=== PATIENT | female | born 1950 | race Caucasian/White ===

== ENCOUNTER 2022-09-18 09:17 | Inpatient (IN) | payer OTHER, MEDICARE ==
[~2022-09-18 09:17] MED LIST: Bupivacaine 0.5% 50 ML MDV ONE; Lactated Ringers 1,000 ML IV SCH; Nozin Nasal Sanitizer NASBOTH ONE
[2022-09-18] MEDS ORDERED: Propofol 200 MG/20 ML SDV ONE ×2 (09:22→11:29)
[2022-09-18] MEDS ORDERED: fentaNYL 100 MCG/2 ML SDV ONE (09:23)
[2022-09-18] MEDS ORDERED: Midazolam 1 MG/ML 2 ML SDV ONE (09:23)
[2022-09-18] MEDS ORDERED: ceFAZolin 2 GM in Premix Bag 1 BAG IV ONE (09:30)
[2022-09-18] MEDS ORDERED: Docusate Sodium 100 MG Cap PO PRN (11:03)
[2022-09-18] MEDS ORDERED: Ondansetron 4 MG/2 ML SDV IVPUSH PRN (11:03)
[2022-09-18] MEDS ORDERED: Morphine 2 MG/ML SYRINGE IVPUSH PRN (11:03)
[2022-09-18] MEDS ORDERED: oxyCODONE 5 MG Tab PO PRN (11:08)
[2022-09-18] MEDS ORDERED: Sodium Chloride 0.9% 1,000 ML IV SCH (11:15)
[2022-09-18] MEDS ORDERED: Lactated Ringers 1,000 ML ONE (11:21)
[2022-09-18] MEDS: Acetaminophen 325 MG Tab PO SCH ×2 (14:08→20:17)
[2022-09-18] MEDS: oxyCODONE 5 MG Tab PO PRN (15:27)
[2022-09-18] MEDS: ceFAZolin 1 GM in Premix Bag 1 BAG IV SCH (17:17)
[2022-09-18] MEDS: Aspirin 325 MG Tab.EC PO SCH (20:17)
[2022-09-18] MEDS: Nozin Nasal Sanitizer NASBOTH SCH (21:36)
[2022-09-19] MEDS: ceFAZolin 1 GM in Premix Bag 1 BAG IV SCH ×2 (02:04→10:12)
[2022-09-19] MEDS: Acetaminophen 325 MG Tab PO SCH ×4 (02:04→19:42)
[2022-09-19] MEDS ORDERED: Non-Formulary Medication 1 Each (Levothyroxine Sodium [Levothyroxine Sodium] 137 MCG Table PO SCH (07:30)
[2022-09-19] MEDS: Rosuvastatin 10 MG Tab PO SCH (08:50)
[2022-09-19] MEDS: Aspirin 325 MG Tab.EC PO SCH ×2 (08:50→20:20)
[2022-09-19] MEDS: Nozin Nasal Sanitizer NASBOTH SCH ×2 (08:50→20:20)
[2022-09-20 00:53] LABS: BASE EXCESS ARTERIAL -2.8 mm/L; BICARBONATE,ARTERIAL 20.3 mmol/L (22.0-26.0); CARBOXYHEMOGLOBIN 2.3 % (0.0-1.6); METHEMOGLOBIN 1.5 %; OXYHEMOGLOBIN 92.4 %; PCO2 ARTERIAL 30.4 mmHg (35.0-42.0); PO2 ARTERIAL 83.8 mmHg (75.0-100.0); TOTAL HEMOGLOBIN 9.5 g/dL (12.0-16.0)
[2022-09-20 00:55] LABS: BASOPHILS PERCENT AUTO 0.1 % (0.1-1.3); HEMATOCRIT 27.8 % (34.3-46.0); HEMOGLOBIN 9.4 g/dL (11.2-15.5); IMMATURE GRAN ABSOLUTE AUTO 0.09 K/uL (0.00-0.23); IMMATURE GRAN PERCENT AUTO 0.7 % (0.0-0.7); LYMPHOCYTES ABSOLUTE AUTO 1.32 K/uL (0.8-3.3); LYMPHOCYTES PERCENT AUTO 10.7 % (11.4-47.7); MEAN CORPUSCULAR HEMOGLOBIN 30.9 pg (31.6-35.5); MEAN CORPUSCULAR HGB CONC 33.8 g/dL (31.6-35.5); MEAN CORPUSCULAR VOLUME 91.4 fL (81.4-99.0); MONOCYTES ABSOLUTE AUTO 1.97 K/uL (0.20-0.90); NEUTROPHILS ABSOLUTE AUTO 8.93 K/uL (1.0-7.6); NEUTROPHILS PERCENT AUTO 72.5 % (40.0-78.1); PLATELET COUNT,PLT 255 K/uL (130-375); RED BLOOD CELL COUNT 3.04 M/uL (3.77-5.24); WHITE BLOOD CELL COUNT,WBC 12.3 K/uL (3.2-11.0)
[2022-09-20 00:59] LABS: BASOPHILS ABSOLUTE AUTO 0.01 K/uL (0.00-0.10)
[2022-09-20 01:20] LABS: A/G RATIO 0.7 (1.2-2.2); ALANINE AMINOTRANSFERASE,ALT 47 U/L (12-78); ALBUMIN 2.6 g/dL (3.4-5.0); ALKALINE PHOSPHATASE 82 U/L (46-116); ASPARTATE AMNIOTRANSFERASE,AST 53 U/L (15-37); BILIRUBIN TOTAL 0.5 mg/dL (0.2-1.0); BLOOD UREA NITROGEN,BUN 20 mg/dL (7-18); CALCIUM 8.3 mg/dL (8.5-10.1); CARBON DIOXIDE,CO2 21 mmol/L (21-32); CHLORIDE,CL 101 mmol/L (100-108); CREATININE 0.8 mg/dL (0.6-1.0); ESTIMATED GFR 78 mL/min (>60); GLUCOSE RANDOM 132 mg/dL (74-106); MAGNESIUM 1.6 mg/dL (1.8-2.4); POTASSIUM,K 3.4 mmol/L (3.6-5.2); PROTEIN TOTAL,TP 6.4 g/dL (6.4-8.2); SODIUM,NA 134 mmol/L (140-148); TROPONIN I HIGH SENSITIVITY 9.6 pg/mL (<=60.3)
[2022-09-20] MEDS: Acetaminophen 325 MG Tab PO SCH ×4 (01:34→19:38)
[2022-09-20 01:39] LABS: ANION GAP 15.4 mmol/L (5.0-14.0)
[2022-09-20 06:59] LABS: BASOPHILS PERCENT AUTO 0.2 % (0.1-1.3); HEMOGLOBIN 9.1 g/dL (11.2-15.5); IMMATURE GRAN PERCENT AUTO 0.8 % (0.0-0.7); LYMPHOCYTES ABSOLUTE AUTO 1.11 K/uL (0.8-3.3); LYMPHOCYTES PERCENT AUTO 9.4 % (11.4-47.7); MEAN CORPUSCULAR HEMOGLOBIN 31.7 pg (31.6-35.5); MEAN CORPUSCULAR VOLUME 90.6 fL (81.4-99.0); MONOCYTES ABSOLUTE AUTO 1.86 K/uL (0.20-0.90); MONOCYTES PERCENT AUTO 15.7 % (3.3-12.6); NEUTROPHILS ABSOLUTE AUTO 8.75 K/uL (1.0-7.6); NEUTROPHILS PERCENT AUTO 73.9 % (40.0-78.1); PLATELET COUNT,PLT 260 K/uL (130-375); RED BLOOD CELL COUNT 2.87 M/uL (3.77-5.24); WHITE BLOOD CELL COUNT,WBC 11.8 K/uL (3.2-11.0)
[2022-09-20 07:01] LABS: BASOPHILS ABSOLUTE AUTO 0.02 K/uL (0.00-0.10)
[2022-09-20] MEDS: Aspirin 325 MG Tab.EC PO SCH ×2 (08:05→21:20)
[2022-09-20] MEDS: Nozin Nasal Sanitizer NASBOTH SCH ×2 (08:05→21:20)
[2022-09-20] MEDS: Rosuvastatin 10 MG Tab PO SCH (08:05)
[2022-09-20] MEDS ORDERED: Potassium Chloride 20 MEQ Tab.ER PO ONE (09:30)
[2022-09-20] MEDS: Magnesium Oxide 400 MG Tab PO SCH ×2 (11:04→21:20)
[2022-09-20] MEDS: Magnesium Sulfate/Water 2 GM in Premix Bag 1 BAG IV SCH ×2 (11:04→16:12)
[2022-09-20] MEDS ORDERED: Sodium Chloride 0.9% 10 ML Syringe FLUSH ONE (13:19)
[2022-09-20] MEDS ORDERED: Iopamidol 755 Mg/ML 100 ML Bottle IV SCH (13:30)
[2022-09-20] MEDS ORDERED: Sodium Chloride 0.9% 75 ML IV SCH (13:30)
[2022-09-20] MEDS ORDERED: Gadoteridol 279.3 MG/ML 15 ML SDV IV SCH (16:00)
[2022-09-21] MEDS: Acetaminophen 325 MG Tab PO SCH ×4 (02:51→20:17)
[2022-09-21] MEDS: Nozin Nasal Sanitizer NASBOTH SCH ×2 (08:23→20:17)
[2022-09-21] MEDS: Rosuvastatin 10 MG Tab PO SCH (08:23)
[2022-09-21] MEDS: Aspirin 325 MG Tab.EC PO SCH ×2 (08:23→20:17)
[2022-09-21] MEDS: Magnesium Oxide 400 MG Tab PO SCH ×2 (08:24→20:17)
[2022-09-21] MEDS: oxyCODONE 5 MG Tab PO PRN (18:13)
[2022-09-22] MEDS: Acetaminophen 325 MG Tab PO SCH ×2 (03:55→08:49)
[2022-09-22] MEDS: Aspirin 325 MG Tab.EC PO SCH (08:49)
[2022-09-22] MEDS: Magnesium Oxide 400 MG Tab PO SCH (08:49)
[2022-09-22] MEDS: Nozin Nasal Sanitizer NASBOTH SCH (08:50)
[2022-09-22] MEDS: Rosuvastatin 10 MG Tab PO SCH (08:50)
== END 2022-09-22 10:50 | DRG 470 ==
LOC: JP.SDS 09:17 → JP.MS 11:03 → JP.SDS 09-19 21:18
PROVIDERS: ADMIT Specialist; ATTEND Physician Assistant
PROC: 0SRD069 Replacement of Left Knee Joint with Oxidized Zirconium on Polyethylene Synthetic Substitute, Cemented, Open Approach (ICD-10-PCS; principal; 2022-09-18)
DX: M17.12 Unilateral primary osteoarthritis, left knee (principal); I31.39 Other pericardial effusion (noninflammatory); G45.9 Transient cerebral ischemic attack, unspecified; E78.00 Pure hypercholesterolemia, unspecified; E05.90 Thyrotoxicosis, unspecified without thyrotoxic crisis or storm; Z87.891 Personal history of nicotine dependence; Z20.822 Contact with and (suspected) exposure to COVID-19; I11.9 Hypertensive heart disease without heart failure; I08.1 Rheumatic disorders of both mitral and tricuspid valves; Z79.899 Other long term (current) drug therapy
CPT/HCPCS: 36415; 36600; 70450; 70496; 70496-26; 70498; 70498-26; 70553; 70553-26; 73560-26-LT; 73560-LT; 80053; 82803; 82947; 83605; 83735; 84484; 85025; 87040; 93306; 97110-GP; 97162-GP; 97165-GO; 97530-GP; 99232; A9270-GY; A9579; C1713; C1776; J0690; J2250; J2704; J3010; J3475; J3490; J7030; J7120; Q9967; U0002

== ENCOUNTER 2023-06-19 10:44 | Inpatient (IN) | payer MEDICARE, OTHER ==
[2023-06-19 11:51] LABS: BASOPHILS ABSOLUTE AUTO 0.04 K/uL (0.00-0.10); BASOPHILS PERCENT AUTO 0.5 % (0.1-1.3); EOSINOPHILS ABSOLUTE AUTO 0.03 K/uL (0.00-0.40); EOSINOPHILS PERCENT AUTO 0.4 % (0.0-5.4); HEMATOCRIT 24.5 % (34.3-46.0); HEMOGLOBIN 8.5 g/dL (11.2-15.5); IMMATURE GRAN ABSOLUTE AUTO 0.04 K/uL (0.00-0.23); IMMATURE GRAN PERCENT AUTO 0.5 % (0.0-0.7); LYMPHOCYTES ABSOLUTE AUTO 0.97 K/uL (0.8-3.3); LYMPHOCYTES PERCENT AUTO 13.1 % (11.4-47.7); MEAN CORPUSCULAR HEMOGLOBIN 33.9 pg (31.6-35.5); MEAN CORPUSCULAR HGB CONC 34.7 g/dL (31.6-35.5); MEAN CORPUSCULAR VOLUME 97.6 fL (81.4-99.0); MONOCYTES PERCENT AUTO 12.1 % (3.3-12.6); NEUTROPHILS ABSOLUTE AUTO 5.44 K/uL (1.0-7.6); NEUTROPHILS PERCENT AUTO 73.4 % (40.0-78.1); PLATELET COUNT,PLT 369 K/uL (130-375); RED BLOOD CELL COUNT 2.51 M/uL (3.77-5.24); WHITE BLOOD CELL COUNT,WBC 7.4 K/uL (3.2-11.0)
[2023-06-19 12:11] LABS: A/G RATIO 0.9 (1.2-2.2); ALANINE AMINOTRANSFERASE,ALT 23 U/L (12-78); ALBUMIN 3.1 g/dL (3.4-5.0); ALKALINE PHOSPHATASE 84 U/L (46-116); ASPARTATE AMNIOTRANSFERASE,AST 21 U/L (15-37); BILIRUBIN TOTAL 0.5 mg/dL (0.2-1.0); BLOOD UREA NITROGEN,BUN 13 mg/dL (7-18); CALCIUM 8.4 mg/dL (8.5-10.1); CARBON DIOXIDE,CO2 28 mmol/L (21-32); CHLORIDE,CL 100 mmol/L (100-108); CREATININE 0.6 mg/dL (0.6-1.0); ESTIMATED GFR 95 mL/min (>60); GLUCOSE RANDOM 83 mg/dL (74-106); PROTEIN TOTAL,TP 6.4 g/dL (6.4-8.2); SODIUM,NA 138 mmol/L (140-148)
[2023-06-19 12:13] LABS: ANION GAP 12.2 mmol/L (5.0-14.0); POTASSIUM,K 2.2 mmol/L (3.6-5.2)
[2023-06-19] MEDS: Sodium Chloride 0.9% 10 ML Syringe FLUSH PRN ×2 (12:57→13:41)
[2023-06-19] MEDS: Sodium Chloride 0.9% 100 ML IV SCH (12:57)
[2023-06-19] MEDS: Iopamidol 612 MG/ML 100 ML Bottle IV SCH (12:58)
[2023-06-19] MEDS: Sodium Chloride 0.9% 1,000 ML IV SCH (13:38)
[2023-06-19] MEDS: Magnesium Sulfate/Water 2 GM in Premix Bag 1 BAG IV ONE (13:40)
[2023-06-19] MEDS: NS + KCl 20mEq/L 1,000 ML IV SCH (14:33)
[2023-06-19 15:16] LABS: CORONAVIRUS COVID-19 NAA NEGATIVE (NEGATIVE); INFLUENZA A NAA NEGATIVE (NEGATIVE); INFLUENZA B NAA NEGATIVE (NEGATIVE); RESPIRATORY SYNCYTIAL VIR NAA NEGATIVE (NEGATIVE)
[2023-06-19] MEDS ORDERED: Magnesium Hydroxide 400 MG/5 ML Susp 30 ML Cup PO PRN (18:37)
[2023-06-19] MEDS ORDERED: Ondansetron 4 MG Tab.DIS PO PRN (18:37)
[2023-06-19] MEDS ORDERED: Acetaminophen 325 MG Tab PO PRN (18:37)
[2023-06-19] MEDS ORDERED: Sennosides/Docusate Sodium 50-8.6 MG Tab PO PRN (18:37)
[2023-06-19] MEDS ORDERED: Ondansetron 4 MG/2 ML SDV IV PRN (18:37)
[2023-06-19] MEDS: Potassium Chloride 10 MEQ in Premix Bag 1 BAG IV SCH (19:19)
[2023-06-19] MEDS: Doxycycline 100 MG Cap PO SCH (20:43)
[2023-06-19] MEDS: levETIRAcetam 250 MG Tab PO SCH (20:43)
[2023-06-20] MEDS: Magnesium Sulfate/Water 2 GM in Premix Bag 1 BAG IV SCH (01:22)
[2023-06-20 06:45] LABS: CALCIUM 8.6 mg/dL (8.5-10.1); CREATININE 0.6 mg/dL (0.6-1.0); EST CRCL DRUG DOSING (CG) 61.28 mL/min; TSH ULTRASENSITIVE 4.472 uIU/mL (0.358-3.740)
[2023-06-20 06:47] LABS: ANION GAP 15.4 mmol/L (5.0-14.0); POTASSIUM,K 2.4 mmol/L (3.6-5.2)
[2023-06-20 06:57] LABS: LYME AB IgG Positive (Negative)
[2023-06-20 06:58] LABS: FOLIC ACID 17.5 ng/ml (8.6-58.9); LYME AB IgM Negative (Negative); T4 FREE 1.48 ng/dL (0.76-1.46)
[2023-06-20 07:02] LABS: C-REACTIVE PROTEIN < 0.50 mg/dL (<0.50)
[2023-06-20] MEDS ORDERED: Potassium Chloride 10 MEQ in Premix Bag 2 BAG IV ONE (07:08)
[2023-06-20] MEDS: Potassium Chloride 10 MEQ in Premix Bag 1 BAG IV ONE (09:08)
[2023-06-20] MEDS: Potassium Chloride 20 MEQ Tab.ER PO ONE ×2 (09:09→16:28)
[2023-06-20] MEDS: Sennosides 8.6 MG Tab PO SCH (09:13)
[2023-06-20] MEDS: Levothyroxine 112 MCG Tab PO SCH (09:13)
[2023-06-20] MEDS: Levothyroxine 25 MCG Tab PO SCH (09:13)
[2023-06-20] MEDS: Potassium Chloride 10 MEQ in Premix Bag 1 BAG IV SCH ×2 (10:14→16:28)
[2023-06-20] MEDS: Acetaminophen 500 MG Tab ONE (16:25)
[2023-06-21 06:18] LABS: CALCIUM 8.7 mg/dL (8.5-10.1); CREATININE 0.8 mg/dL (0.6-1.0); EST CRCL DRUG DOSING (CG) 50.43 mL/min; POTASSIUM,K 4.2 mmol/L (3.6-5.2)
[2023-06-21 06:23] LABS: ANION GAP 14.2 mmol/L (5.0-14.0)
[2023-06-22 06:50] LABS: ANTI-NUCLEAR AB ANA,IGG ELISA Detected (None Detected)
[2023-06-22 16:38] LABS: B. BURGDORFERI IGG IMMUNOBLOT Negative (Negative); B. BURGDORFERI IGM IMMUNOBLOT Negative (Negative)
[2023-06-24 08:05] LABS: ANA PATTERN Speckled; ANTINUCLEAR AB (ANA),HEP-2,IGG Detected (<1:80)
[2023-06-24 22:32] LABS: SMITH/RNP (ENA) AB, IGG 2 Units (0-19)
[2023-06-25] LABS: DOUBLE-STRANDED DNA IGG ELISA 10 IU (0-24)
[2023-06-25 07:32] LABS: JO-1 HISTIDYL-TRNA SYNTHET,IGG 0 AU/mL (0-40); SCLERODERMA (SCL-70) AB,IGG 1 AU/mL (0-40); SMITH (ENA) ANTIBODY, IGG 2 AU/mL (0-40); SSA-52 (RO52) (ENA) AB, IGG 11 AU/mL (0-40); SSA-60 (RO60) (ENA) AB, IGG 0 AU/mL (0-40); SSB (LA) (ENA) ANTIBODY, IGG 0 AU/mL (0-40)
== END 2023-06-21 14:22 | disposition home or self-care (01) | DRG 57 ==
LOC: JP.ED 10:44 → JP.MS 17:56
PROVIDERS: ADMIT Internal Medicine; ATTEND Internal Medicine
DX: M62.838 Other muscle spasm (principal); D64.9 Anemia, unspecified; E86.0 Dehydration; G81.14 Spastic hemiplegia affecting left nondominant side; E87.6 Hypokalemia; E05.90 Thyrotoxicosis, unspecified without thyrotoxic crisis or storm; Z79.899 Other long term (current) drug therapy; M24.59 Contracture, other specified joint; E83.42 Hypomagnesemia; E78.00 Pure hypercholesterolemia, unspecified; R47.1 Dysarthria and anarthria; Z96.652 Presence of left artificial knee joint; E03.9 Hypothyroidism, unspecified; Z79.890 Hormone replacement therapy; Z87.891 Personal history of nicotine dependence
CPT/HCPCS: 0241U; 36415; 70470; 80048; 80053; 82607; 82746; 83735; 84132; 84439; 84443; 85018; 85025; 85651; 86038; 86039; 86140; 86235; 86617; 86618; 92610; 93005; 96365; 96366; 96367; 97163; 97165; 97530; 99223; 99232; 99238; 99285; 86225; 93010; A9270-GY; J3475; J3480; J3490; J7030; Q9967

== ENCOUNTER 2023-10-07 11:21 | Emergency (ER) | payer MEDICARE, OTHER ==
[2023-10-07 13:17] LABS: BASOPHILS ABSOLUTE AUTO 0.06 K/uL (0.00-0.10); BASOPHILS PERCENT AUTO 0.6 % (0.1-1.3); EOSINOPHILS ABSOLUTE AUTO 0.07 K/uL (0.00-0.40); EOSINOPHILS PERCENT AUTO 0.6 % (0.0-5.4); HEMATOCRIT 34.2 % (34.3-46.0); HEMOGLOBIN 11.7 g/dL (11.2-15.5); IMMATURE GRAN ABSOLUTE AUTO 0.05 K/uL (0.00-0.23); IMMATURE GRAN PERCENT AUTO 0.5 % (0.0-0.7); LYMPHOCYTES ABSOLUTE AUTO 1.35 K/uL (0.8-3.3); LYMPHOCYTES PERCENT AUTO 12.5 % (11.4-47.7); MEAN CORPUSCULAR HEMOGLOBIN 31.2 pg (31.6-35.5); MEAN CORPUSCULAR HGB CONC 34.2 g/dL (31.6-35.5); MEAN CORPUSCULAR VOLUME 91.2 fL (81.4-99.0); MONOCYTES ABSOLUTE AUTO 0.91 K/uL (0.20-0.90); MONOCYTES PERCENT AUTO 8.4 % (3.3-12.6); NEUTROPHILS ABSOLUTE AUTO 8.39 K/uL (1.0-7.6); NEUTROPHILS PERCENT AUTO 77.4 % (40.0-78.1); PLATELET COUNT,PLT 382 K/uL (130-375); RED BLOOD CELL COUNT 3.75 M/uL (3.77-5.24); WHITE BLOOD CELL COUNT,WBC 10.8 K/uL (3.2-11.0)
[2023-10-07 13:36] LABS: A/G RATIO 0.7 (1.2-2.2); ALANINE AMINOTRANSFERASE,ALT 25 U/L (12-78); ALBUMIN 3.2 g/dL (3.4-5.0); ALKALINE PHOSPHATASE 104 U/L (46-116); ANION GAP 11.6 mmol/L (5.0-14.0); ASPARTATE AMNIOTRANSFERASE,AST 21 U/L (15-37); BILIRUBIN TOTAL 0.2 mg/dL (0.2-1.0); BLOOD UREA NITROGEN,BUN 26 mg/dL (7-18); CALCIUM 8.8 mg/dL (8.5-10.1); CARBON DIOXIDE,CO2 28 mmol/L (21-32); CHLORIDE,CL 99 mmol/L (100-108); CREATININE 0.7 mg/dL (0.6-1.0); EST CRCL DRUG DOSING (CG) 51.25 mL/min; ESTIMATED GFR 91 mL/min (>60); GLUCOSE RANDOM 102 mg/dL (74-106); POTASSIUM,K 4.6 mmol/L (3.6-5.2); PROTEIN TOTAL,TP 7.5 g/dL (6.4-8.2); SODIUM,NA 134 mmol/L (140-148)
[2023-10-07 14:05] LABS: APPEARANCE,URINE CLEAR (CLEAR); BILIRUBIN,URINE NEGATIVE (NEGATIVE); COLOR,URINE YELLOW (YELLOW); GLUCOSE,URINE NEGATIVE (NEGATIVE); KETONES,URINE NEGATIVE (NEGATIVE); LEUKOCYTE ESTERASE,URINE NEGATIVE (NEGATIVE); NITRITE,URINE NEGATIVE (NEGATIVE); OCCULT BLOOD,URINE NEGATIVE (NEGATIVE); PH,URINE 6.5 (5.0-8.0); PROTEIN,URINE NEGATIVE (NEGATIVE); UROBILINOGEN,URINE 0.2 EU/dL (0.2-1.0)
[2023-10-07 14:10] LABS: AMORPHOUS SEDIMENT,URINE NOT SEEN; BACTERIA,URINE NOT SEEN; EPITHELIAL CELLS,URINE RARE; MUCUS,URINE NOT SEEN; RBC,URINE 0-5 (0-5); WBC,URINE 0-5 (0-5)
[2023-10-09 20:56] LABS: KEPPRA (LEVETIRACETAM) 28 ug/mL (10-40)
== END 2023-10-07 15:00 | disposition home or self-care (01) ==
LOC: JP.ED 11:21
DX: R41.82 Altered mental status, unspecified (principal); R56.9 Unspecified convulsions; E83.42 Hypomagnesemia; Z79.82 Long term (current) use of aspirin; Z79.890 Hormone replacement therapy; Z79.899 Other long term (current) drug therapy; Z87.891 Personal history of nicotine dependence
CPT/HCPCS: 36415; 70450; 80053; 80177; 81001; 83735; 84443; 85025; 99284; 99285

== ENCOUNTER 2024-06-11 14:54 | Observation (INO) | payer MEDICARE ==
[2024-06-11] MEDS ORDERED: Sodium Chloride 0.9% 10 ML Syringe FLUSH PRN ×2 (14:56→19:15)
[2024-06-11 15:05] LABS: BASOPHILS ABSOLUTE AUTO 0.07 K/uL (0.00-0.10); EOSINOPHILS ABSOLUTE AUTO 0.06 K/uL (0.00-0.40); EOSINOPHILS PERCENT AUTO 0.9 % (0.0-5.4); HEMATOCRIT 39.3 % (34.3-46.0); HEMOGLOBIN 13.3 g/dL (11.2-15.5); IMMATURE GRAN ABSOLUTE AUTO 0.03 K/uL (0.00-0.23); IMMATURE GRAN PERCENT AUTO 0.4 % (0.0-0.7); LYMPHOCYTES ABSOLUTE AUTO 1.36 K/uL (0.8-3.3); LYMPHOCYTES PERCENT AUTO 19.5 % (11.4-47.7); MEAN CORPUSCULAR HEMOGLOBIN 33.1 pg (31.6-35.5); MEAN CORPUSCULAR HGB CONC 33.8 g/dL (31.6-35.5); MEAN CORPUSCULAR VOLUME 97.8 fL (81.4-99.0); MONOCYTES ABSOLUTE AUTO 0.56 K/uL (0.20-0.90); NEUTROPHILS ABSOLUTE AUTO 4.88 K/uL (1.0-7.6); NEUTROPHILS PERCENT AUTO 70.2 % (40.0-78.1); PLATELET COUNT,PLT 356 K/uL (130-375); RED BLOOD CELL COUNT 4.02 M/uL (3.77-5.24)
[2024-06-11 15:25] LABS: PROTHROMBIN TIME 9.8 sec (9.2-10.6)
[2024-06-11 15:29] LABS: ANION GAP 13.6 mmol/L (5.0-14.0); BLOOD UREA NITROGEN,BUN 27 mg/dL (7-18); CALCIUM 9.8 mg/dL (8.5-10.1); CARBON DIOXIDE,CO2 23 mmol/L (21-32); CHLORIDE,CL 104 mmol/L (100-108); CREATININE 0.9 mg/dL (0.6-1.0); ESTIMATED GFR 68 mL/min (>60); GLUCOSE RANDOM 93 mg/dL (74-106); POTASSIUM,K 4.2 mmol/L (3.6-5.2); SODIUM,NA 141 mmol/L (140-148); TROPONIN I HIGH SENSITIVITY 7.3 pg/mL (<=60.3)
[2024-06-11 15:31] LABS: LACTIC ACID 2.4 mmol/L (0.4-2.0)
[2024-06-11] MEDS: LORazepam 2 MG/ML SDV IVPUSH ONE (15:59)
[2024-06-11] MEDS: Enalaprilat 1.25 MG/ML SDV IVPUSH ONE (16:16)
[2024-06-11] MEDS: Sodium Chloride 0.9% 1,000 ML IV ONE (16:16)
[2024-06-11 16:29] LABS: BILIRUBIN,URINE SMALL (NEGATIVE); COLOR,URINE YELLOW (YELLOW); GLUCOSE,URINE NEGATIVE (NEGATIVE); KETONES,URINE 80 mg/dL (NEGATIVE); LEUKOCYTE ESTERASE,URINE NEGATIVE (NEGATIVE); NITRITE,URINE NEGATIVE (NEGATIVE); OCCULT BLOOD,URINE SMALL (NEGATIVE); PROTEIN,URINE 100 mg/dL (NEGATIVE); UROBILINOGEN,URINE 0.2 EU/dL (0.2-1.0)
[2024-06-11 16:35] LABS: AMORPHOUS SEDIMENT,URINE NOT SEEN; AMPHETAMINES SCREEN, URINE NEGATIVE (NEGATIVE); APPEARANCE,URINE SLIGHTLY CLOUDY (CLEAR); BACTERIA,URINE FEW; BARBITURATE SCREEN,URINE NEGATIVE (NEGATIVE); EPITHELIAL CELLS,URINE FEW; METHAMPHETAMINES SCREEN, URINE NEGATIVE (NEGATIVE); MUCUS,URINE FEW
[2024-06-11 16:36] LABS: BENZODIAZEPINES SCREEN,URINE NEGATIVE (NEGATIVE); METHADONE SCREEN, URINE NEGATIVE (NEGATIVE); OXYCODONE SCREEN,URINE NEGATIVE (NEGATIVE); PROPOXYPHENE SCREEN,URINE NEGATIVE (NEGATIVE); THC SCREEN,URINE 50 NG/ML NEGATIVE (NEGATIVE)
[2024-06-11] MEDS ORDERED: Ondansetron 4 MG/2 ML SDV IV PRN (19:15)
[2024-06-11] MEDS ORDERED: Polyethylene Glycol 3350 Powder 17 GM Packet PO PRN (19:15)
[2024-06-11] MEDS ORDERED: hydrALAZINE 20 MG/ML SDV IVPUSH PRN (19:15)
[2024-06-11] MEDS: Enoxaparin 40 MG/0.4 ML Syringe SUBCUT SCH (20:34)
[2024-06-11] MEDS: Sodium Chloride 0.9% 1,000 ML IV SCH (20:36)
[2024-06-11] MEDS: levETIRAcetam 250 MG Tab PO SCH (20:39)
[2024-06-12 06:16] LABS: HEMATOCRIT 29.3 % (34.3-46.0); MEAN CORPUSCULAR HEMOGLOBIN 33.6 pg (31.6-35.5); MEAN CORPUSCULAR HGB CONC 34.1 g/dL (31.6-35.5); MEAN CORPUSCULAR VOLUME 98.3 fL (81.4-99.0); RED BLOOD CELL COUNT 2.98 M/uL (3.77-5.24); WHITE BLOOD CELL COUNT,WBC 7.2 K/uL (3.2-11.0)
[2024-06-12 06:40] LABS: CALCIUM 8.7 mg/dL (8.5-10.1); CREATININE 0.5 mg/dL (0.6-1.0); EST CRCL DRUG DOSING (CG) 86.53 mL/min; MAGNESIUM 1.8 mg/dL (1.8-2.4); POTASSIUM,K 3.5 mmol/L (3.6-5.2)
[2024-06-12 06:43] LABS: ANION GAP 11.5 mmol/L (5.0-14.0)
[2024-06-12] MEDS: Levothyroxine 112 MCG Tab PO SCH (07:39)
[2024-06-12] MEDS: Levothyroxine 25 MCG Tab PO SCH (07:39)
[2024-06-12] MEDS: Pantoprazole 40 MG Tab.CR PO SCH (07:41)
[2024-06-12] MEDS: Magnesium Oxide 400 MG Tab PO SCH (08:46)
[2024-06-12] MEDS: Potassium Chloride 20 MEQ Tab.ER PO ONE (08:46)
[2024-06-12] MEDS: Aspirin 325 MG Tab.EC PO SCH (08:46)
[2024-06-12] MEDS: Docusate Sodium 100 MG Cap PO SCH (08:46)
[2024-06-12] MEDS ORDERED: LEVOTHYROXINE SODIUM 137 MCG PO SCH (09:00)
[2024-06-12] MEDS ORDERED: Pantoprazole 40 MG Tab.CR PO SCH (09:00)
[2024-06-12] MEDS ORDERED: FLU (Fluad Triv) TS24-25 (65UP)/MF59C/PF 45 MCG/0.5 ML Syringe IM ONE (10:00)
[2024-06-12] MEDS: Enoxaparin 40 MG/0.4 ML Syringe SUBCUT SCH (20:40)
[2024-06-13 20:00] LABS: KEPPRA (LEVETIRACETAM) 4 ug/mL (10-40)
[2024-06-14] MEDS: COLESTIPOL 1 GM PO SCH (10:28)
[2024-06-16] MEDS ORDERED: Pneumococcal 20-Valent Conjug 0.5 ML Syringe IM ONE (09:00)
[2024-06-16] MEDS: Fluticasone NASAL Spray 16 GM Bottle NASBOTH SCH (12:11)
[2024-06-17] MEDS: Pneumococcal 20-Valent Conjug 0.5 ML Syringe IM ONE (08:16)
[2024-06-18] MEDS: Sennosides/Docusate Sodium 50-8.6 MG Tab PO PRN (07:18)
[2024-06-19 05:56] LABS: HEMATOCRIT 28.4 % (34.3-46.0); HEMOGLOBIN 9.5 g/dL (11.2-15.5); MEAN CORPUSCULAR HEMOGLOBIN 33.3 pg (31.6-35.5); MEAN CORPUSCULAR HGB CONC 33.5 g/dL (31.6-35.5); MEAN CORPUSCULAR VOLUME 99.6 fL (81.4-99.0); RED BLOOD CELL COUNT 2.85 M/uL (3.77-5.24); WHITE BLOOD CELL COUNT,WBC 7.3 K/uL (3.2-11.0)
[2024-06-19 06:14] LABS: ANION GAP 8.1 mmol/L (5.0-14.0); CALCIUM 8.4 mg/dL (8.5-10.1); CREATININE 0.4 mg/dL (0.6-1.0); EST CRCL DRUG DOSING (CG) 108.17 mL/min; POTASSIUM,K 4.1 mmol/L (3.6-5.2)
[2024-07-02] MEDS: Acetaminophen 325 MG Tab PO PRN (19:22)
== END 2024-07-03 10:36 | disposition home or self-care (01) ==
LOC: JP.ED 14:54 → JP.MS 17:06
PROVIDERS: ADMIT Hospitalist; ATTEND Internal Medicine
DX: I69.954 Hemiplegia and hemiparesis following unspecified cerebrovascular disease affecting left non-dominant side (principal); G40.909 Epilepsy, unspecified, not intractable, without status epilepticus; M24.59 Contracture, other specified joint; E78.00 Pure hypercholesterolemia, unspecified; E03.9 Hypothyroidism, unspecified; Z79.890 Hormone replacement therapy; Z87.891 Personal history of nicotine dependence; Z79.899 Other long term (current) drug therapy
CPT/HCPCS: 36415; 70450; 71045; 80048; 80177; 80305; 81001; 82550; 83605; 83735; 84132; 84443; 84484; 85018; 85025; 85027; 85610; 85730; 87040; 93005; 93010; 96361; 96374; 96375; 97165; 97530; 99222; 99231; 99232; 99238; 99285; A9270; J1650; J2060; J3490; J7030; 96372; G0378

== ENCOUNTER 2024-10-11 19:57 | Emergency (ER) | payer MEDICARE, MEDICAID ==
[2024-10-11 20:28] LABS: BASOPHILS ABSOLUTE AUTO 0.04 K/uL (0.00-0.10); BASOPHILS PERCENT AUTO 0.4 % (0.1-1.3); EOSINOPHILS ABSOLUTE AUTO 0.19 K/uL (0.00-0.40); EOSINOPHILS PERCENT AUTO 2.0 % (0.0-5.4); IMMATURE GRAN ABSOLUTE AUTO 0.04 K/uL (0.00-0.23); IMMATURE GRAN PERCENT AUTO 0.4 % (0.0-0.7); LYMPHOCYTES ABSOLUTE AUTO 2.98 K/uL (0.8-3.3); LYMPHOCYTES PERCENT AUTO 30.9 % (11.4-47.7); MONOCYTES ABSOLUTE AUTO 0.97 K/uL (0.20-0.90); MONOCYTES PERCENT AUTO 10.1 % (3.3-12.6); NEUTROPHILS ABSOLUTE AUTO 5.43 K/uL (1.0-7.6); NEUTROPHILS PERCENT AUTO 56.2 % (40.0-78.1); PLATELET COUNT,PLT 309 K/uL (130-375); RED BLOOD CELL COUNT 3.11 M/uL (3.77-5.24); WHITE BLOOD CELL COUNT,WBC 9.7 K/uL (3.2-11.0)
[2024-10-11 20:52] LABS: LACTIC ACID 1.5 mmol/L (0.4-2.0)
[2024-10-11 20:55] LABS: BLOOD UREA NITROGEN,BUN 16 mg/dL (7-18); CARBON DIOXIDE,CO2 28 mmol/L (21-32); CHLORIDE,CL 105 mmol/L (100-108); CREATININE 0.5 mg/dL (0.6-1.0); ESTIMATED GFR 98 mL/min (>60); GLUCOSE RANDOM 114 mg/dL (74-106); POTASSIUM,K 4.0 mmol/L (3.6-5.2); SODIUM,NA 140 mmol/L (140-148)
[2024-10-11 21:56] LABS: APPEARANCE,URINE SLIGHTLY CLOUDY (CLEAR); GLUCOSE,URINE NEGATIVE (NEGATIVE); OCCULT BLOOD,URINE TRACE-INTACT (NEGATIVE)
[2024-10-11 22:03] LABS: EPITHELIAL CELLS,URINE RARE
== END 2024-10-11 23:23 | disposition home or self-care (01) ==
LOC: JP.ED 19:57
DX: N39.0 Urinary tract infection, site not specified (principal); E78.00 Pure hypercholesterolemia, unspecified; Z79.890 Hormone replacement therapy; Z79.82 Long term (current) use of aspirin; Z79.899 Other long term (current) drug therapy
CPT/HCPCS: 36415; 71045; 80048; 81001; 83605; 85025; 86140; 87086; 87088; 87186; 99285; A9270; 99283